=== PATIENT | female | born 1955 ===

== ENCOUNTER 2025-03-03 15:05 | Emergency (ER) | payer MEDICARE ==
[~2025-03-03] VITALS: Ht 167.6 cm; Wt 69.5 kg
[2025-03-03 15:07] VITALS: BP 112/70; PULSE 127; RESP 16; TEMP 99.6; O2SAT 96
[2025-03-03 15:49] LABS: BASOPHILS % (AUTO) 0.1 % (0-1); EOSINOPHILS % (AUTO) 0.4 % (0-6); HEMATOCRIT 38.6 % (35.0-45.0); HEMOGLOBIN 13.3 g/dl (12.0-16.0); LYMPHOCYTES # (AUTO) 0.2 X10'3 (1.1-4.8); LYMPHOCYTES % (AUTO) 3.8 % (21-51); MEAN CORPUSCULAR HEMOGLOBIN 28.7 PG (27.0-31.0); MEAN CORPUSCULAR HGB CONC 34.4 g/dL (33.0-36.5); MEAN CORPUSCULAR VOLUME 83.4 FL (78-98); MEAN PLATELET VOLUME 7.4 FL (7.4-10.4); MONOCYTES % (AUTO) 0.4 % (2-12); NEUTROPHILS % (AUTO) 95.3 % (42-75); PLATELET COUNT 181 X10'3 (140-440); RED BLOOD COUNT 4.63 X10'6 (4.20-5.60); RED CELL DISTRIBUTION WIDTH 13.7 % (11.5-14.5); WHITE BLOOD COUNT 6.3 X10'3 (4.5-11.0)
[2025-03-03 16:07] LABS: ALANINE AMINOTRANSFERASE 34 U/L (12-78); ALBUMIN 3.6 G/DL (3.4-5.0); ALBUMIN/GLOBULIN RATIO 1.2 (1.1-1.5); ALKALINE PHOSPHATASE 144 IU/L (46-116); ANION GAP 10 (8-16); ASPARTATE AMINO TRANSFERASE 68 U/L (10-37); BLOOD UREA NITROGEN 16 MG/DL (7-18); CHLORIDE 103 MMOL/L (99-107); GLUCOSE 124 MG/DL (70-104); POTASSIUM 3.4 MMOL/L (3.5-5.1); SODIUM 141 MMOL/L (135-145); TOTAL CARBON DIOXIDE 28.2 MMOL/L (24-32); TOTAL PROTEIN 6.7 G/DL (6.4-8.2)
[2025-03-03 16:14] LABS: eCRCL 50 ML/MIN; eGFR 55 ML/MIN
== END 2025-03-03 19:57 | disposition left against medical advice (07) ==
LOC: ER 15:06
DX: R30.0 Dysuria (principal); M54.50 Low back pain, unspecified; R53.1 Weakness; R21 Rash and other nonspecific skin eruption; Z53.21 Procedure and treatment not carried out due to patient leaving prior to being seen by health care provider
CPT/HCPCS: 36415; 80053; 85025